=== PATIENT | female | born 1990 | race African-American/Black ===

== ENCOUNTER 2020-08-18 05:30 | Observation (INO) | payer SELFPAY ==
[2020-08-18] MEDS ORDERED: PROPOFOL 20 ML ONE (05:44)
[2020-08-18] MEDS ORDERED: Fentanyl 100 MCG/2 ML VIAL ONE ×2 (05:45→08:07)
[2020-08-18] MEDS ORDERED: Ondansetron PF 4 MG/2 ML Vial ONE (05:48)
[2020-08-18] MEDS ORDERED: Succinylcholine 200 MG/10 ml SYRINGE FS ONE (05:48)
[2020-08-18] MEDS ORDERED: Dexamethasone 20 MG/5 ML VIAL ONE (05:48)
[2020-08-18] MEDS ORDERED: Rocuronium Bromide 10 MG/ML (10ML VIAL) ONE (05:48)
[2020-08-18 05:51] LABS: #Eosinphils 0.1 10x3/uL (0.0-0.5); #Monocytes 0.8 10x3/uL (0.0-1.1); %Basophils 0.3 % (0.0-2.0); %Eosinophils 0.9 % (0.0-6.0); %Lymphocytes 15.7 % (18.0-47.0); %Monocytes 6.3 % (0.0-10.0); %Neutrophils 76.3 % (40.0-75.0); Hemoglobin 9.6 g/dL (12.0-15.5); Mean Corpuscular HGB CONC 32.8 g/dL (32.0-36.0); Mean Corpuscular Volume 85.4 fl (81.6-98.3); Mean Platelet Volume 10.1 fl (7.4-10.4); Platelet Count 222 10x3/uL (150-450); RBC Distribution Width 12.5 % (11.5-14.5); Red Blood Cell (RBC) Count 3.43 10x6/uL (3.90-5.03); White Blood Cell (WBC) Count 13.1 10x3/uL (3.5-10.5)
[2020-08-18] MEDS ORDERED: EPINEPHrine 1 MG/ML AMP ONE (06:12)
[2020-08-18] MEDS ORDERED: Bupivacaine PF 0.5% 30 ML VIAL ONE (06:13)
[2020-08-18] MEDS ORDERED: PHENYLEPHRINE-NS 100 MCG/ML 10 ML SYRINGE ONE ×2 (06:32→07:00)
[2020-08-18] MEDS ORDERED: Albumin 5% 250 ML ONE ×2 (06:38)
[2020-08-18 06:58] LABS: SARS-CoV-2 NAA Rapid Test Not Detected (NotDetected)
[2020-08-18] MEDS ORDERED: Glycopyrrolate 0.2 MG/ML 5 ML SYRINGE ONE (07:12)
[2020-08-18] MEDS ORDERED: Acetaminophen 325 MG TAB PO PRN (08:13)
[2020-08-18] MEDS ORDERED: Ibuprofen 800 MG TAB PO PRN (08:15)
[2020-08-18] MEDS ORDERED: Promethazine HCl 25 MG/ML VIAL ONE (09:26)
[2020-08-18 12:42] LABS: Hemoglobin 9.1 g/dL (12.0-15.5); Mean Corpuscular Hemoglobin 27.7 pg (27.0-33.0); Mean Corpuscular Volume 86.3 fl (81.6-98.3); Mean Platelet Volume 10.6 fl (7.4-10.4); Platelet Count 197 10x3/uL (150-450); RBC Distribution Width 12.6 % (11.5-14.5); Red Blood Cell (RBC) Count 3.29 10x6/uL (3.90-5.03); White Blood Cell (WBC) Count 10.1 10x3/uL (3.5-10.5)
[2020-08-18] MEDS ORDERED: FLU VACC QS2020-21(6MOS UP)/PF 60 MCG/0.5 ML SYRINGE IM ONE (13:15)
[2020-08-18] MEDS: HYDROcodone/Acetaminophen 5/325 mg Tablet PO PRN ×2 (13:39→18:51)
[2020-08-18 17:34] VITALS: BP 102/50
[2020-08-18 19:10] VITALS: TEMP 98.3
[2020-08-19] MEDS ORDERED: FLU VACC QS2020-21(6MOS UP)/PF 60 MCG/0.5 ML SYRINGE IM ONE (09:00)
== END 2020-08-18 19:20 | disposition home or self-care (01) ==
LOC: CSHERS 05:30 → CSHPP 09:18 → INTOOBSV 09:18
PROVIDERS: ADMIT Obstetrics & Gynecology; ATTEND Obstetrics & Gynecology
PROC: 10T24ZZ Resection of Products of Conception, Ectopic, Percutaneous Endoscopic Approach (ICD-10-PCS; principal; 2020-08-18)
DX: O00.101 Right tubal pregnancy without intrauterine pregnancy (principal); F41.9 Anxiety disorder, unspecified; F31.9 Bipolar disorder, unspecified; Z20.822 Contact with and (suspected) exposure to COVID-19
CPT/HCPCS: 36415; 85025; 86850; 86900; 86901; 99285; G0378; J0171; J1100; J2405; J2550; J2704; J3010; P9045; S0020; U0002